=== PATIENT | female | born 1995 | race Caucasian/White ===

== ENCOUNTER 2021-07-11 07:15 | Day surgery (SDC) | payer OTHER ==
[~2021-07-11] VITALS: Ht 170.2 cm; Wt 56.8 kg
[2021-07-11] VITALS (150 sets, daily range): BP systolic 82–136; BP diastolic 37–106
--- NOTE | 2021-07-11 07:15 | NUR ---
PATIENT TO ROOM AMBUALTORY. CONSENT OBTAINED. VS OBTAINED. DR SOLER NOTIFIED. ADMISSION ASSESSMENT COMPLETED. IV ESTABLISHED. CALL [facility].
[2021-07-11 07:47] LABS: HEMATOCRIT 37.5 % (37.0-47.0); HEMOGLOBIN 11.7 g/dl (12.0-16.0); IMMATURE GRANULOCYTES 0.1 % (0.0-5.0); MEAN CELL VOLUME 87.2 fL CALC (80.0-100.0); MEAN CORPUSCULAR HGB 27.2 pG CALC (26.0-32.0); MEAN CORPUSCULAR HGB CONC 31.2 g/dL CAL (32.0-36.0); NEUT# 4.59 thou/uL (2.00-7.15); RED BLOOD COUNT 4.3 mill/uL (4.20-5.60)
[2021-07-11 08:15] LABS: ALBUMIN 4.3 g/dL (3.2-5.0); ALKALINE PHOSPHATASE 68 u/l (38-126); ANION GAP 10 (6-22 (CALC)); BILIRUBIN, TOTAL 0.3 mg/dL (0.0-1.4); BUN 10 mg/dL (7-17); BUN/CREATININE RATIO 13 (12-20 (CALC)); CARBON DIOXIDE 35 mmol/l (22-30); CHLORIDE 98 mmol/l (95-108); CREATININE 0.8 mg/dL (0.5-1.0); GFR > 60 ML/MIN (>=60 (CALC)); GFR FOR AFR.AMER. > 60 ML/MIN (>=60 (CALC)); POTASSIUM 3.8 mmol/l (3.5-5.1); SGOT/AST 32 u/l (14-36); SODIUM 140 mmol/l (137-146); TOTAL PROTEIN 8.5 g/dL (6.3-8.2)
--- NOTE | 2021-07-11 09:40 | NUR ---
DR. SOLER AT BEDSIDE.
--- NOTE | 2021-07-11 11:40 | NUR ---
Induction Note Patient to [facility] procedure room. Time out performed at 1140. Patient placed on monitors, Danielle hugger, bilateral wrist restraints applied for ET tube protection. Versed 5mg given IV push at 1141. Tourniquet applied to right arm Lidocaine 100mg given at 1142. IV push followed by Rocoronium 10mg at 1142 IV push and held for 90 seconds. Propofol bolus of 100 mg given at 1143 IV push. Succinylcholine 80mg given IV push at 1144. Smooth intubation with 7.5 ETT. Positive CO2. Positive Auscultation for air exchange. Patient placed on ventilator for spontaneous ventilation. Placed on Propofol IV drip at 1145 . OG inserted. Positive air on auscultation. Positive gastric content. Stomach washed at this time. Naltrexone 75mg given via OG Tube. OG clamped for 45 minutes. Will monitor patient for symptoms of withdrawal and adjust propfol accordingly.
--- NOTE | 2021-07-11 12:45 | NUR ---
OG open note OG open at this time. Gastric content draining into drainage bag. OG to drain for 45 minutes. Propofol will be titrated down based on patient.
--- NOTE | 2021-07-11 13:30 | NUR ---
OG close note Stomach washed at this time. Naltrexone 50 mg with Clonidine 0.1 mg via OG tube. OG will be clamped for 45 minutes.
--- NOTE | 2021-07-11 16:15 | NUR ---
Extubation note Closing medications given Benadryl 50mg IV push, Decadron 10mg IV push,Magnesium 4 grams IV, Zofran 8mg IV push, Octreotide 100mcg SC. Stomach washed out prior to extubation. Suctioned gastric content. OG removed. Patient extubated. Propofol Discontinued. Wrist restraints removed. Danielle hugger Removed. See ANR Moderate sedate recovery record for further notes and assessment.
--- NOTE | 2021-07-11 16:35 | NUR ---
Patient arrived on the floor at this time. VSS. IVF with LR running at 100ml/hr bed in low position. Nurse at bedside for continuous monitoring.
--- NOTE | 2021-07-11 18:50 | NUR ---
REPORT RECEIVED FROM Evelyn OAKLEY RN.
--- NOTE | 2021-07-11 19:10 | NUR ---
REPORT RECEIVED FROM A AHUJA OLMAN.
--- NOTE | 2021-07-11 19:13 | NUR ---
REPORT GIVEN TO OLMAN DOYLE
--- NOTE | 2021-07-11 19:30 | NUR ---
PATIENT ASSESMENT COMPLETED AT THIS TIME. PATIENT ALERT AND ORIENTED TO SELF, PLACE AND TIME. NON LABORED BREATHING, CLEAR LUNG SOUNDS, RR OF 19 SATURATING 98% ON ROOM AIR. REGULAR HEART SOUNDS, APICAL HEART RATE OF 65. #20 IN RIGHT ANTECUBITAL REMOVED BY PATIENT PRIOR TO SHIFT. #18 IN LEFT HAND CURRENTLY INFUSING PER EMAR SKIN DRY AND INTACT. PATIENT HAS BEEN UP AND TO THE BSC WITH ASSIST X1. CALL LIGHT AND BEDSIDE TABLE WITHIN REACH.
--- NOTE | 2021-07-11 22:27 | NUR ---
PATIENT REMOVED #18 IN LEFT HAND.
--- NOTE | 2021-07-11 22:32 | NUR ---
REPORT RECEIVED FROM A AHUJA OLMAN.
--- NOTE | 2021-07-11 23:23 | NUR ---
PATIENT REFUSING NEW IV ACCESS. WILL ATTEMPT AT A LATER TIME.
--- NOTE | 2021-07-11 23:33 | NUR ---
PATIENT UP TO RESTROOM WITH STANBY ASSIST. VOICES NO FURTHER NEEDS. CALL LIGHT AND BEDSIDE TABLE WITHIN REACH.
--- NOTE | 2021-07-11 23:37 | NUR ---
PATIENT MEDICATED PER EMAR, SEE EMAR
--- NOTE | 2021-07-11 23:49 | NUR ---
PATIENT UP TO BSC COMMODE WITH ASSIT X1
--- NOTE | 2021-07-12 00:44 | NUR ---
PATIENT SLEEPING SOUNDLY, NO APPARENT NEEDS AT THIS TIME, PATIENT DOES NO APPEAR TO BE IN ANY PAIN. CALL LIGHT AND BEDSIDE TABLE WITHIN REACH.
[2021-07-12 03:21] VITALS: BP 126/73
--- NOTE | 2021-07-12 03:44 | NUR ---
MEDIATIONS ADMINISTERED AT THIS TIME PER EMAR, SEE EMAR.
--- NOTE | 2021-07-12 03:44 | NUR ---
NEW IV ACCES STARTED AT THIS TIME. PATIENT HAS A #20 IN HER RIGHT AC. FLUSHED AND PATENT X1 ATTEMPT.
--- NOTE | 2021-07-12 04:10 | NUR ---
COMPOSITION FLOOR SETTER IN TO DRAW MORNING LABS AT THIS TIME.
[2021-07-12 05:17] LABS: HEMOGLOBIN 11.7 g/dl (12.0-16.0); IMMATURE GRANULOCYTES 0.2 % (0.0-5.0); MEAN CELL VOLUME 83.9 fL CALC (80.0-100.0); MEAN CORPUSCULAR HGB 27.3 pG CALC (26.0-32.0); MEAN CORPUSCULAR HGB CONC 32.5 g/dL CAL (32.0-36.0); NEUT# 5.14 thou/uL (2.00-7.15); RED BLOOD COUNT 4.29 mill/uL (4.20-5.60); RED CELL DISTRI WIDTH 14.3 % (11.5-15.5)
[2021-07-12 05:25] LABS: ALBUMIN 4.2 g/dL (3.2-5.0); ALKALINE PHOSPHATASE 70 u/l (38-126); BILIRUBIN, TOTAL 0.4 mg/dL (0.0-1.4); BUN 11 mg/dL (7-17); BUN/CREATININE RATIO 17 (12-20 (CALC)); CHLORIDE 102 mmol/l (95-108); CREATININE 0.7 mg/dL (0.5-1.0); GFR > 60 ML/MIN (>=60 (CALC)); GFR FOR AFR.AMER. > 60 ML/MIN (>=60 (CALC)); MAGNESIUM 1.9 mg/dL (1.6-2.3); SGOT/AST 33 u/l (14-36); SODIUM 138 mmol/l (137-146)
[2021-07-12 05:27] LABS: ANION GAP 16 (6-22 (CALC)); POTASSIUM 4.1 mmol/l (3.5-5.1)
[2021-07-12 05:35] LABS: CARBON DIOXIDE 24 mmol/l (22-30)
--- NOTE | 2021-07-12 06:04 | NUR ---
PATIENT RESTING COMFORTABLY, SLEEPING SOUNDLY, ABLE TO AWAKE TO SPEECH. DENIES ANY CURRENT NEEDS, CALL LIGHT AND BEDSIDE TABLE WITHIN REACH.
[2021-07-12 10:04] VITALS: BP 126/73
--- NOTE | 2021-07-12 17:17 | NUR ---
PT IV REMOVED, EDUCATED ON NEED TO FOLLOW UP WITH ANR AND TO TAKE MEDICATIONS PRESCRIBED. MD AND PT ADVOCATE EDUCATED PT AND GRANDMOTHER ON RECOVERY AND FOLLOW UP
== END 2021-07-12 17:00 | disposition home or self-care (01) | DRG 897 ==
LOC: ANR 07:15 → MS2 07:15 → ANR 11:01
PROVIDERS: ATTEND Anesthesiology
DX: F11.20 Opioid dependence, uncomplicated (principal)
CPT/HCPCS: J2060; J2354